=== PATIENT | female | born 1955 | race Caucasian/White ===

== ENCOUNTER → 2023-11-01 13:38 | Outpatient (REF) | payer MEDICARE, OTHER, SELFPAY | LOC: WDC 13:38 | PROVIDERS: ATTENDING PHYSICIAN Internal Medicine Hematology & Oncology; FAMILY PHYSICIAN Family Medicine | DX: Z12.31 Encounter for screening mammogram for malignant neoplasm of breast (principal); Z85.3 Personal history of malignant neoplasm of breast; C50.412 Malignant neoplasm of upper-outer quadrant of left female breast | CPT/HCPCS: 77062; 77066 ==

== ENCOUNTER → 2024-02-18 12:37 | Outpatient (REF) | payer MEDICARE, OTHER, SELFPAY | LOC: HWRAD 12:37 | PROVIDERS: ATTENDING PHYSICIAN Internal Medicine Rheumatology; FAMILY PHYSICIAN Family Medicine | DX: M81.0 Age-related osteoporosis without current pathological fracture (principal) | CPT/HCPCS: 77080 ==

== ENCOUNTER → 2024-12-14 14:21 | Outpatient (REF) | payer MEDICARE, OTHER, SELFPAY | LOC: HWWDC 14:21 | PROVIDERS: ATTENDING PHYSICIAN Family Medicine Geriatric Medicine; FAMILY PHYSICIAN Family Medicine; REFERRING PHYSICIAN Obstetrics & Gynecology Gynecology | DX: Z12.31 Encounter for screening mammogram for malignant neoplasm of breast (principal) | CPT/HCPCS: 77063; 77067 ==

== ENCOUNTER → 2025-02-06 07:17 | Outpatient (REF) | payer MEDICARE, OTHER, SELFPAY | LOC: RSP 07:17 | PROVIDERS: ATTENDING PHYSICIAN Internal Medicine Cardiovascular Disease; FAMILY PHYSICIAN Family Medicine | DX: I10 Essential (primary) hypertension (principal); E78.00 Pure hypercholesterolemia, unspecified; I48.0 Paroxysmal atrial fibrillation; R06.09 Other forms of dyspnea | CPT/HCPCS: 94727; 94729; 88738; 94010 ==

== ENCOUNTER 2025-04-30 06:18 | Day surgery (SDC) | payer MEDICARE, OTHER, SELFPAY | END 2025-04-30 10:02 | disposition home or self-care (01) | LOC: GI 06:18 | PROVIDERS: ATTENDING PHYSICIAN Internal Medicine Gastroenterology | DX: Z12.11 Encounter for screening for malignant neoplasm of colon (principal); D12.2 Benign neoplasm of ascending colon; D12.3 Benign neoplasm of transverse colon; D12.4 Benign neoplasm of descending colon; K57.30 Diverticulosis of large intestine without perforation or abscess without bleeding; K62.1 Rectal polyp; K62.89 Other specified diseases of anus and rectum; Z86.0100 Personal history of colon polyps, unspecified | CPT/HCPCS: 45380; 88305 ==

== ENCOUNTER → 2025-06-05 08:43 | Outpatient (REF) | payer MEDICARE, OTHER, SELFPAY | LOC: WDC 08:43 | PROVIDERS: ATTENDING PHYSICIAN Obstetrics & Gynecology Gynecology; FAMILY PHYSICIAN Family Medicine | DX: N63.20 Unspecified lump in the left breast, unspecified quadrant (principal); Z85.3 Personal history of malignant neoplasm of breast; N63.21 Unspecified lump in the left breast, upper outer quadrant | CPT/HCPCS: 76642; 77061; 77065 ==

== ENCOUNTER 2025-07-13 06:20 | Day surgery (SDC) | payer MEDICARE, OTHER, SELFPAY ==
[2025-07-02 14:05] VITALS: BMI 34.9
[2025-07-13 07:40] VITALS: BP 155/81
[2025-07-13 07:59] VITALS: BMI 34.9
[2025-07-13] MEDS: TYLENOL 1000 MG PO (08:09)
[2025-07-13] MEDS: NORMOSOL-R/PLASMALYTE-A 1000 IV (08:20)
[2025-07-13 08:27] LABS: Glucose - Point of Care 121 mg/dl (70-99)
[2025-07-13 10:00] VITALS: BP 113/56
--- NOTE | 2025-07-13 10:11 | W.IMMPOSTOP ---
Surgical Immed Post Op Note
-
Primary Surgeon: Codey
Assisting Surgeon: None
Pre-op Diagnosis: mass left breast
Post-op Diagnosis: mass left breast
Procedure Performed: excisional biopsy mass left breast
Anesthesia Type: TIVA
Specimen / Cultures: Left breast mass
Estimated Blood Loss: 2cc
Complications: None
Operative Findings: None
--- NOTE | 2025-07-13 10:12 | OR.RPT ---
Operative Report
Operative Report
Date of procedure: 07/13/2025
Surgeon: Codey
Preoperative diagnosis mass left breast
Postoperative diagnosis: Mass left breast
Procedure: Excisional biopsy mass left breast
The patient is a 69-year-old female with a prior history of left breast carcinoma treatment who had undergone lumpectomy and postoperative radiotherapy. She presented with a mass adjacent to her lumpectomy incision which was first treated as an
infected inclusion cyst but which did not heal. She presents now for excision.
The patient presented to the same-day surgical services unit where she was prepped. She verified site and procedure and DVT and antibiotic prophylaxis were provided. She was taken to the operating room and in the supine position intravenous
sedation was delivered. The left breast was prepped and draped in the usual sterile fashion and all team members performed an appropriate timeout procedure. All tissues were anesthetized with 1% lidocaine plain and a wedge excision of the
overlying skin of the mass was made sharply with the blade. This was extended into the soft tissues of the breast and the mass was excised with the cautery. This was sent for permanent analysis. Time out of body was noted. Hemostasis was
maintained with the cautery. Marcaine 0.5% plain was instilled and the wound was closed using simple interrupted 403 0 Vicryl subcutaneous and subcu tenia's tissue and a running subcuticular 4-0 Biosyn with simple interrupted Biosyn's externally
for extra support. Surgical glue and sterile compressive dressing were applied. All sponge needle and instrument counts were correct and the patient was taken to the recovery room in stable condition
()
[2025-07-13 10:15] VITALS: BP 128/56
[2025-07-13 10:30] VITALS: BP 139/68
[2025-07-13 10:45] VITALS: BP 145/70
== END 2025-07-13 10:59 | disposition home or self-care (01) ==
LOC: SDS 06:20
PROVIDERS: ATTENDING PHYSICIAN Surgery; FAMILY PHYSICIAN Family Medicine
DX: N60.02 Solitary cyst of left breast (principal); N63.20 Unspecified lump in the left breast, unspecified quadrant; Z85.3 Personal history of malignant neoplasm of breast
CPT/HCPCS: 19120; 82962; 87070; 88305

== ENCOUNTER → 2025-09-25 15:53 | Outpatient (REF) | payer MEDICARE, OTHER, SELFPAY | LOC: RAD 15:53 | PROVIDERS: ATTENDING PHYSICIAN Nurse Practitioner Family; FAMILY PHYSICIAN Family Medicine | DX: J40 Bronchitis, not specified as acute or chronic (principal) | CPT/HCPCS: 71046 ==